=== PATIENT | female | born 1965 | race Caucasian/White ===

== ENCOUNTER 2016-12-02 08:13 | Day surgery (SDC) | payer MEDICARE ==
--- NOTE | ~2016-12-02 | OP ---
Record Of Operation [facility] [address] [place]. 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 Biopsies have been negative for calciphylaxis, although the patient clinically meets the criteria and has responded to the sodium thiosulfate injections, although not completely. The patient has an area that is larger than we can adequately debride in the [facility] due to pain and discomfort and need for more aggressive debridement at this point. PROCEDURE: Excisional debridement down to the muscle layer with injection of 50 mL of sodium thiosulfate in the lateral and periwound areas of the left lower quadrant. A Versajet was used on level 10, and cauterization was achieved with the Bovie cautery. The pulsed lavage was also used at the conclusion for hygiene. The tissue was necrotic slough with skin, subcutaneous tissue, and muscle fascia. The final depth to the muscle layer was 30 cm x 5.5 cm with a 5 cm depth. 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 SURGEON: Karina Ibrahim M.D., FACS GAMING SURVEILLANCE OBSERVER: Jaguar Ibrahim RN, [facility] ANESTHESIA: General with LMA. FLUIDS: 200 mL of fluid were given. ESTIMATED BLOOD LOSS: 30 mL. There was no urine output in this anuric patient. A Vac-Pac with silver sponge was placed at the conclusion. SPECIMENS: Culture on the tissue was sent for anaerobic, aerobic, fungus, and AFB from the deep portion of the ulceration as tissue culture and pathology specimen was sent from the periwound and deeper tissues looking for pathologic evidence of calciphylaxis. The patient will be discharged home once she has recovered. DESCRIPTION OF PROCEDURE: The patient was prepped and draped in routine fashion, where adequate general anesthesia in the area of the abdomen approach in the left lower quadrant, prepped and draped away from the peritoneal catheter site. Occlusive dressings were placed to protect this peritoneal catheter. The jagged necrotic edges of the wound as well as the bottom of the wound and mostly on the lateral aspect of the wound, where there was foul- smelling, black and necrotic slough tissue, were debrided with pickups and scissors. Specimen was submitted, taking the periwound tissues back to more viable tissue. After Record Of Operation [facility] [address] [place]. [address] NAME: JACKIE PLUMMER : 63 STATUS : [facility]#: [id number] AGE: 51 ADM/REG DATE : 12/02/16 MR#: [id number] REPORT SERV DATE: 12/02/16 DICTATED BY: KARINA IBRAHIM III DATE: 12/02/16 REPORT STATUS : Draft TRANSCRIBED BY: PENNY DATE: 12/02/16 cultures had been obtained, antibiotics were given in the form of 2 g of vancomycin and 2 g of Ancef. The patient was then debrided aggressively with the Versajet on 10 level and hemostasis was achieved with the cautery, and following that complete area of debridement, pulsed lavage was used to clean the tissue and irrigate it aggressively. Hemostasis was achieved with cautery, and the wound base was lined with Surgicel to assist with the oozing. Silver sponge was placed to wound VAC and secured with the provided drape adherent to the skin. The estimated blood loss was 30 mL. The patient tolerated the procedure well and should be given a prescription for [place] 5/325 to take one or two every four hours p.r.n. for additional pain, and followup in the [facility] planned in one week. No residual necrosis or slough was left behind, and all viable tissues were noted. A time-out was performed prior to the procedure initiation. All personnel were in full agreement with the time-out planned. MELISSA/PENNY Karina Ibrahim III, M.D. / [id number] CC: Vira Thompson III, [facility] Rebecca Frank M.D.
[~2016-12-02 08:13] MED LIST: APRES50 PO; CORDARONE PO; CRESTOR40 MG PO; DIOV80 PO; ELIQUIS 2.5 MG2.5 MG PO; FISH, FLAX, BORAGE PO; FLONASE NAS; HUMALOG SC; L80 PO; LANTUS SC; LOP25 PO; NEUR100 PO; NORCO1 TA1 PO; NORV5 PO; PROAIR HFA INH; RENVELA800 MG PO; TRAZ50 PO; ZOL100 PO
[2016-12-02 09:22] LABS: BASOPHILS 0.2 %; BASOPHILS ABSOLUTE 0.04 10/3/uL (0.0-0.16); EOSINOPHILS 1.7 %; EOSINOPHILS ABSOLUTE 0.29 10/3/uL (0.0-0.53); IMMATURE GRANULOCYTES 0.5 %; IMMATURE GRANULOCYTES ABSOLUTE 0.08 10/3/uL (0.0-0.11); LYMPHOCYTES 7.4 %; LYMPHOCYTES ABSOLUTE 1.28 10/3/uL (0.67-4.30); MEAN CORPUSCULAR HEMOGLOB 27.2 pg (26.0-34.0); MEAN CORPUSCULAR VOLUME 91.4 fL (80-100); MEAN PLATELET VOLUME 8.9 fL (9.2-13.0); MONOCYTES 11.8 %; MONOCYTES ABSOLUTE 2.04 10/3/uL (0.21-1.20); NEUTROPHILS 78.4 %; NEUTROPHILS ABSOLUTE 13.53 10/3/uL (2.02-8.40); RBC DISTRIBUTION WIDTH 16.3 % (12.0-16.0)
[2016-12-02 09:23] LABS: HEMATOCRIT 26.5 % (36.0-48.0); HEMOGLOBIN 7.9 g/dL (12.0-16.0); MANUAL DIFF NO %; MEAN CORPUS HGB CONC 29.8 g/dL (32.0-36.0); PLATELET COUNT 309 10/3/uL (150-400); WHITE BLOOD CELLS 17.3 10/3/uL (4.5-10.5)
[2016-12-02 09:31] LABS: INTERNATIONAL NORMAL RATI 1.2 UNITS (-); PARTIAL THROMBO TIME 29.2 SEC (22.5-37.2)
[2016-12-02 09:36] LABS: CALCIUM, SERUM 8.3 MG/DL (8.5-10.4); CHLORIDE, SERUM 104 MMOL/L (96-112); CO2 (CARBON DIOXIDE) 26 MMOL/L (24-34); POTASSIUM, SERUM 4.3 MMOL/L (3.5-5.3); SGOT(AST) 27 U/L (5-40); SGPT(ALT) 19 U/L (5-65); SODIUM, SERUM 140 MMOL/L (135-148); TOTAL BILIRUBIN 0.3 MG/DL (0-1.2)
[2016-12-02 09:37] LABS: A/G RATIO 0.4 (0.7-1.9); ALBUMIN 1.9 G/DL (3.5-5.0); ALKALINE PHOSPHATASE 155 U/L (45-117); BUN (BLOOD UREA NITROGEN) 25 MG/DL (6-23); CREATININE 3.37 MG/DL (0.55-1.02); GFR AFRICAN AMERICAN 17 ML/MIN (>=60); GFR NON AFRICAN AMERICAN 15 ML/MIN (>=60); GLOBULIN 5.1 G/DL (2.5-4.1); GLUCOSE, SERUM 88 MG/DL (60-99)
[2017-03-07] MEDS ORDERED: PROAIR HFA INH (10:17)
[2017-04-10] MEDS ORDERED: ROCALTROL0.5 MCG PO (13:49)
[2017-04-10] MEDS ORDERED: PCET PO (13:51)
[2017-04-10] MEDS ORDERED: TUMSROLL PO (13:54)
[2017-04-14] MEDS ORDERED: TUMS E-X750 M2 PO (22:56)
[2017-04-14] MEDS ORDERED: ROCALTROL0.5 MCG PO (22:56)
[2017-04-14] MEDS ORDERED: FLORASTOR250 MG PO (22:57)
[2017-04-14] MEDS ORDERED: PROAIR HFA INH (22:57)
[2017-04-14] MEDS ORDERED: NORV5 PO (23:04)
[2017-04-14] MEDS ORDERED: NEUR100 PO (23:04)
[2017-04-14] MEDS ORDERED: CRESTOR40 MG PO (23:04)
[2017-04-14] MEDS ORDERED: ZOL100 PO (23:04)
[2017-04-14] MEDS ORDERED: SANTYL OINTMENT TOP (23:05)
[2017-04-14] MEDS ORDERED: DIOV160 PO (23:05)
[2017-04-14] MEDS ORDERED: APRES50 PO (23:06)
[2017-04-14] MEDS ORDERED: TRAZ50 PO (23:06)
[2017-04-14] MEDS ORDERED: CORDARONE PO (23:06)
[2017-04-14] MEDS ORDERED: NORCO1 TAB PO (23:06)
[2017-04-14] MEDS ORDERED: LOP25 PO (23:06)
[2017-04-14] MEDS ORDERED: NYSTATPOW TOP (23:07)
[2017-04-14] MEDS ORDERED: LIDO2JELLY TOP (23:08)
[2017-04-14] MEDS ORDERED: ELIQUIS 2.5 MG2.5 MG PO (23:08)
[2017-04-14] MEDS ORDERED: LANTUS SC (23:09)
[2017-04-14] MEDS ORDERED: AURYXIA210 MG PO (23:09)
[2017-04-14] MEDS ORDERED: HUMALOG (23:10)
[2017-04-14] MEDS ORDERED: SEVE800T PO (23:11)
== END 2016-12-02 18:34 | disposition home or self-care (01) ==
LOC: SDC 08:13
PROVIDERS: Surgery
PROC: 0KBL0ZZ Excision of Left Abdomen Muscle, Open Approach (ICD-10-PCS; principal; 2016-12-02 09:45)
DX: K65.4 Sclerosing mesenteritis (principal); E11.622 Type 2 diabetes mellitus with other skin ulcer; L98.499 Non-pressure chronic ulcer of skin of other sites with unspecified severity; E11.22 Type 2 diabetes mellitus with diabetic chronic kidney disease; I12.0 Hypertensive chronic kidney disease with stage 5 chronic kidney disease or end stage renal disease; N18.6 End stage renal disease; G47.33 Obstructive sleep apnea (adult) (pediatric); K21.9 Gastro-esophageal reflux disease without esophagitis; I48.91 Unspecified atrial fibrillation; J45.909 Unspecified asthma, uncomplicated; E66.01 Morbid (severe) obesity due to excess calories; E11.40 Type 2 diabetes mellitus with diabetic neuropathy, unspecified; E78.00 Pure hypercholesterolemia, unspecified; F32.9 Major depressive disorder, single episode, unspecified; F41.9 Anxiety disorder, unspecified; Z99.89 Dependence on other enabling machines and devices; Z68.43 Body mass index [BMI] 50.0-59.9, adult; Z88.2 Allergy status to sulfonamides; Z91.041 Radiographic dye allergy status; Z79.4 Long term (current) use of insulin; Z79.899 Other long term (current) drug therapy; Z79.891 Long term (current) use of opiate analgesic; Z98.890 Other specified postprocedural states; Z90.710 Acquired absence of both cervix and uterus; Z90.89 Acquired absence of other organs
CPT/HCPCS: 80053; 82962; 85025; 85610; 85730; 87015; 87070; 87075; 87077; 87102; 87116; 87186; 87205; 88304; 93005; J0690; J2250; J2270; J2370; J2405; J3010; J3370

== ENCOUNTER 2016-12-08 17:30 | Inpatient (IN) | payer MEDICARE ==
--- NOTE | ~2016-12-08 | OP ---
Record Of Operation [facility] [address] [place]. [address] NAME: JACKIE PLUMMER : 63 STATUS : ADM IN PAT#: [id number] AGE: 51 ADM/REG DATE : 12/09/16 MR#: [id number] REPORT SERV DATE: 12/10/16 DICTATED BY: KARINA IBRAHIM III DATE: 12/10/16 REPORT STATUS : Draft TRANSCRIBED BY: PENNY DATE: 12/10/16 DATE OF PROCEDURE: 12/10/2016 PREOPERATIVE DIAGNOSIS: Peritoneal dialysis catheter no longer being utilized secondary to its proximity to an open left lower quadrant abdominal wound close to the exit point of the peritoneal dialysis catheter in the left lower quadrant and large wound of the left lower quadrant presumably secondary to calciphylaxis, although not biopsy proven. POSTOPERATIVE DIAGNOSIS: Peritoneal dialysis catheter no longer being utilized secondary to its proximity to an open left lower quadrant abdominal wound close to the exit point of the peritoneal dialysis catheter in the left lower quadrant and large wound of the left lower quadrant presumably secondary to calciphylaxis, although not biopsy proven. PATHOLOGY: Peritoneal dialysis catheter that was otherwise functional but extremely close within 7 cm of the edge of the wound in the left lower quadrant precluding its safe usage. The patient has a large open wound of the left lower quadrant that had been debrided about eight days ago and cultured with findings consistent with superficial infection, but the patient grew on 12/02/2016 Enterococcus faecalis, group D, sensitive to Levaquin with which she is being treated. PROCEDURE: Removal of peritoneal dialysis catheter with culture and sensitivity of its tip followed by a culture and sensitivity of the lateral aspect of the left lower quadrant wound followed by debridement of left lower quadrant wound. Skin, subcu, and muscle excisionally debrided using a Versajet at level 7. This was followed by application of [employer] wound VAC set at 150 mmHg continuous mode vacuum. Two pieces of Surgicel were used on the base of the left lower quadrant wound. ESTIMATED BLOOD LOSS: 5 mL. The postoperative dimension of the left lower quadrant wound was 7.5 x 30 x 5.5 with a tunnel in the left lateral aspect that was 8 cm that was covered with Surgicel and VAC sponge extended down into the tunnel. DESCRIPTION OF PROCEDURE: The patient was prepped and draped in the routine fashion excluding the area of the left lower quadrant wound with an Ioban and prepping out the area of the left lower quadrant peritoneal dialysis catheter initially. The entire catheter was prepped into the operative field. Gentle pressure on the catheter showed an area where there was tension where the VitaCuff was present and a small transverse incision about 2 cm in length was made in this area to cut down on the peritoneal dialysis catheter. The VitaCuff both proximal and distal cuffs were identified and dissected away from the catheter and subcu tissue using cautery. After this was done, the two VitaCuff-adhered areas, the peritoneal dialysis catheter was pulled out of the peritoneum and the tip placed in a sterile cup for culture and sensitivity of the tip. After this was done, the track of the perineal dialysis catheter was closed with 2-0 Vicryl Record Of Operation [facility] [address] [facility] [place]. [address] NAME: JACKIE PLUMMER : 63 STATUS : ADM IN [facility]#: [id number] AGE: 51 ADM/REG DATE : 12/09/16 MR#: [id number] REPORT SERV DATE: 12/10/16 DICTATED BY: KARINA IBRAHIM III DATE: 12/10/16 REPORT STATUS : Draft TRANSCRIBED BY: PENNY DATE: 12/10/16 [id number] sutures. Subcutaneous tissues were irrigated and closed with interrupted 3- 0 Vicryl on the skin and left open, but loosely approximated with the subcutaneous Vicryls. The exit point of the left lower quadrant was cauterized circumferentially, but not formally closed allowing the track to drain. Telfa and Tegaderm were applied to the areas. Again, the wounds of the peritoneal dialysis excision were excluded from the left lower quadrant wound, which was then exposed after having it prepped and draped preoperatively. A time-out had been held prior to the peritoneal dialysis catheter excision and then again another time-out prior to the excision of the left lower quadrant wound presumably secondary to calciphylaxis and fat necrosis as well as secondary infection. The wound was inspected and noted to have some early granulation tissue involving about 30% of the wound, but there were several areas of slough and some fat necrosis that were excisionally debrided with the #7 setting of the Versajet, most of which were on the medial aspect, and then the tunneled area of the lateral aspect was opened gently and Versajet was used to clean the slough and necrotic tissue that was somewhat seropurulent in the area. Cultures were obtained from this area to reassess potential infection. After this was done, the area was reinspected. Hemostasis achieved with the cautery. Versajet was used to excisionally debride any areas that were with slough that were some spotty areas in this relatively large tissue. The dissection level was excisional and to the skin, subcu, and muscle layer. After this was done, Surgicel was placed along the base of the large wound, which measured 7.5 x 30 x 5.5 with the tunnel 8 cm in the lateral aspect. Wound VAC was then applied with sterile technique and sterile draping and VAC applied at 150 mmHg continuous mode vacuum. The patient tolerated the procedure well. Minimal blood loss of 5 mL, but she was quite anemic prior to the procedure, which needs to be followed. Continue the Levaquin and follow her in the [facility] after her discharge, which should be forthcoming. MELISSA/PENNY Karina Ibrahim III, M.D. / [id number] CC: Vira Malik AZHAR S. James Hoback Jr., M.D.
--- NOTE | ~2016-12-08 | DS ---
Discharge Summary [facility] [address] [place]. [address] NAME: JACKIE PLUMMER : 63 STATUS : DIS IN PAT#: [id number] AGE: 51 ADM/REG DATE : 12/09/16 MR#: [id number] REPORT SERV DATE: 12/22/16 DICTATED BY: ADAN ROMEO DATE: 12/21/16 REPORT STATUS : Draft TRANSCRIBED BY: PENNY DATE: 12/21/16 Data Collection from hospitalization DISCHARGE DIAGNOSES: 1. Chest pain. 2. Abdominal calciphylaxis with secondary cellulitis and peritoneal dialysis catheter removal. 3. End-stage renal disease. 4. Morbid obesity. 5. Protein malnutrition. 6. Hypertension. 7. Anemia - acute on chronic. 8. Iron deficiency. 9. Leukocytosis. 10.History of renal osteodystrophy. 11.History of depression. 12.History of paroxysmal atrial fibrillation. 13.History of obstructive sleep apnea. CONSULTATIONS: 1. Juice Carballo M.D. 2. Matias Ibrahim M.D. PROCEDURES PERFORMED: Removal of peritoneal dialysis catheter with culture and sensitivity of its tip followed by culture and sensitivity of the lateral aspect of the left lower quadrant wound followed by debridement of left lower quadrant wound. Skin, subcutaneous, and muscle excisionally debrided using Versajet at level 7, this was followed by application of [employer] wound VAC set at 150 mmHg continuous mode vacuum. Two pieces of Surgicel were used on the base of the left lower quadrant wound on 12/10/2016. MEDICATIONS: Cordarone 200 mg daily; Norvasc 5 mg daily; Eliquis 2.5 mg twice a day; Aranesp 60 mcg IV on Mondays, Wednesdays, and Fridays; Auryxia 210 mg with meals; Lasix 80 mg twice a day; Neurontin 100 mg daily; Apresoline 50 mg twice a day; [place] 10/325 one tablet every eight hours as needed; Lantus 35 units subcutaneously twice a day; Venofer infusion 100 mg on Mondays, Wednesdays, and Fridays as instructed; Levaquin 500 mg every 48 hours; Lopressor 25 mg twice a day; Bactroban cream one application three times a day; Mycostatin one application topically three times a day; Zemplar 3 mcg IV on Mondays, Wednesdays, Fridays; Crestor 40 mg at bedtime; Florastor 250 mg daily; Zoloft 150 mg daily; Renvela 800 mg with meals.; Desyrel 50 mg at bedtime; Pro-Stat renal care 30 mL three times a day; and Diovan 160 mg daily. CONDITION AT DISCHARGE: Stable. DISPOSITION: The patient was discharged home on an 1800-calorie diabetic/renal diet with activities as instructed. She would follow up with Dr. Alvin Shafer on 12/29/[address] Matias Ibrahim III, on 12/20/2016. HOSPITAL COURSE: This is a 51-year-old female who has diabetes and hypertension as well as Discharge Summary [address] [address] NAME: JACKIE PLUMMER : 63 STATUS : DIS IN [facility]#: [id number] AGE: 51 ADM/REG DATE : 12/09/16 MR#: [id number] REPORT SERV DATE: 12/22/16 DICTATED BY: ADAN ROMEO DATE: 12/21/16 REPORT STATUS : Draft TRANSCRIBED BY: PENNY DATE: 12/21/16 hyperlipidemia and calciphylaxis who had been taken off hemodialysis at [facility] one hour early on the day of this admission when she suffered substernal chest pain described as tightness with radiation towards the back area. For the previous two days, she had noticed episodes of pleuritic chest pain characterized as discomfort when she would suck in a deep breath and during those times would note some numbness in the left hand. This was not continuous, but would last for several minutes and then resolved. She was thought to have hypoxemia on pulse oximetry at home and that was not found when she presented to the emergency department. She was to have an unremarkable EKG and negative troponin enzymes. However, the chest pain that she was having when she was taken off dialysis was relieved when she was given nitroglycerin in the ambulance. She has no prior history of coronary artery disease. She was admitted to the hospital for further evaluation and treatment. Upon admission, white blood cell count was 16. Troponin I was less than 0.02 on two subsequent measurements. She has anemia secondary to chronic kidney disease with recent high severity with hemoglobin down to 7. She was originally planned for two units of packed red blood cells to be given at her outpatient dialysis on that following Tuesday. If she goes home prior to that day, she could still have this undertaken. The patient does have calciphylaxis with left lower abdominal wound subpannus with a Vac-Pac in place. She does have mild hypoxemia. Serial troponins would be obtained overnight. Possible nuclear stress test would be performed the following day. Nitroglycerin would be given as needed. Her home medications were going to be resumed as ordered. She was seen in consultation by Dr. Matias Ibrahim III. This patient is followed regularly in the [facility] for left lower quadrant pannicular calciphylaxis with subsequent large ulcerative lesion that measures 5.5 x 30 cm with a depth of 5 cm after her last debridement on 12/02/2016. Culture and sensitivity from 12/02/2016 showed primarily Enterococcus faecalis group D with moderate growth that was sensitive to Levaquin. She still has a peritoneal dialysis catheter in place. She had been on peritoneal dialysis up until the past few weeks and was presently on hemodialysis. The peritoneal dialysis catheter was in place close to the wound, which should be removed for preventatives problems, especially since she no longer uses this catheter. He felt we should plan to debride again lightly and remove the peritoneal dialysis catheter. It was felt that she would be a reasonable candidate for this procedure. She was also seen by Dr. Juice Carballo regarding chest pain and underlying diabetes and end- stage renal disease. She had no exertional symptoms and no exertional palpitations. He felt that she had atypical chest pain. He felt that she certainly had risk factors for coronary disease, but at this point, he would not let this interfere with the proposed surgery. Her most recent EKG from 1:00 p.m. that day was normal. There were no contraindications to the proposed surgery. He felt that we could determine whether or not perfusion scan would be warranted in an outpatient setting. On 12/10/2016, she had no further chest pain. Eliquis was on hold. She was going to be transfused two units of packed red blood cells. She was taken to the operating room by Dr. Matias Ibrahim III, where she underwent the above-mentioned procedure. She tolerated this well, and there were no complications. Antibiotics were continued. Blood cultures were negative. Dialysis therapy continued. On 12/11/2016, she was in no acute distress. O2 saturation was 95% on room air. Over the next couple of days, she continued to do well. Hemodialysis therapy continued. She had no Discharge Summary [place] [id number] [facility] [place]. [address] NAME: JACKIE PLUMMER : 63 STATUS : DIS IN PAT#: [id number] AGE: 51 ADM/REG DATE : 12/09/16 MR#: [id number] REPORT SERV DATE: 12/22/16 DICTATED BY: ADAN ROMEO DATE: 12/21/16 REPORT STATUS : Draft TRANSCRIBED BY: PENNY DATE: 12/21/16 new complaints. She was wanting to go home. On 12/13/2016, she was alert and cooperative. She had no focal deficits. The wound VAC was changed. The peritoneal dialysis catheter cultures revealed no growth. Discharge instructions were given. Due to her improved and stable condition, she was discharged home to be followed by home health care with the above- stated instructions. Information collected by: Mehreen Tomlin I submit the above information as my discharge summary. TG/PENNY Adan Romeo M.D. / [id number] CC: Vira Malik AZHAR S. David Wendt, M.D. Robert Barnett III, M.D.
--- NOTE | ~2016-12-08 | CN ---
Consultation Report [facility] [address] [place]. [address] NAME: JACKIE PLUMMER : 63 STATUS : ADM IN PAT#: [id number] AGE: 51 ADM/REG DATE : 12/09/16 MR#: [id number] REPORT SERV DATE: 12/10/16 DICTATED BY: RIZWANA CARBALLO DATE: 12/09/16 REPORT STATUS : Draft TRANSCRIBED BY: MODAlan DATE: 12/09/16 CARDIOLOGY CONSULTATION DATE OF CONSULTATION: INDICATIONS: Chest pain, underlying diabetes, end-stage renal disease. HISTORY: The patient is a 51-year-old white female, with a fairly complex medical history including atrial fibrillation and atrial flutter x2 with most recent ablation on 10/31/2009. She had been controlled on metoprolol 25 b.i.d. until this past year, when she started to have recurrent tachy palpitations. She is now on insulin, starting 200 mg per day of amiodarone, her symptoms have subsided. She is admitted 12/08/2016 with substernal chest discomfort while on dialysis. The patient states, she has had three episodes of discomfort over the past three to four days. The episodes she describes as sharp with radiation to the back, worse with deep breathing, with associated left hand numbness. There is no nausea, diaphoresis, or shortness of breath. She did note a decrease in O2 saturation on Tuesday (87% to 92%). She was given some oxygen while at dialysis yesterday and her O2 sats have been normal since that time. She has had no exertional symptoms and no exertional palpitations. Her last perfusion study was three years ago at [facility], which is reported to have been normal. CURRENT HOME MEDICATIONS: Amiodarone 200 per day, amlodipine 5 per day, Apixaban 2.5 b.i.d., Aranesp 60 IV Tuesday, Tuesday, Tuesday with dialysis, ferric citrate 210 per day, furosemide 80 b.i.d., gabapentin 100 per day, hydralazine 50 b.i.d., hydrocodone 10/325 q.8h p.r.n., insulin glargine 35 units subcu b.i.d., iron sucrose infusion with dialysis, metoprolol tartrate 25 b.i.d., paricalcitol 5 mcg injection Tuesday, Tuesday, Tuesday, rosuvastatin 40 at bedtime, Saccharomyces boulardii 250 mg capsule daily, sertraline 50 a day, sevelamer 800 with meals, trazodone 50 at bedtime, ProStat Renal Care 30 mL Tuesday, Tuesday, Tuesday, and valsartan 160 a day. ALLERGIES OR INTOLERANCES: IV contrast, sulfa, and hydromorphone. 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 Does not smoke or use illicit substances. FAMILY HISTORY: Father had lung cancer. Mother had diabetes. No family history of coronary disease. PAST MEDICAL HISTORY/REVIEW OF SYSTEMS: She is now on hemodialysis, previously on PD for biopsy-proven diabetic nephropathy. She has anemia of chronic kidney disease with recent hemoglobin at 7, there is some chronic hypertension, renal osteodystrophy, calciphylaxis with a large wound in the left lower quadrant of the abdomen, sub-pannus, paroxysmal atrial fibrillation which is presently well controlled, previous lap band surgery in 2005, history Consultation Report [address] [address] NAME: JACKIE PLUMMER : 63 STATUS : ADM IN PAT#: [id number] AGE: 51 ADM/REG DATE : 12/09/16 MR#: [id number] REPORT SERV DATE: 12/10/16 DICTATED BY: RIZWANA CARBALLO DATE: 12/09/16 REPORT STATUS : Draft TRANSCRIBED BY: PENNY DATE: 12/09/16 of obstructive sleep apnea. At this time, her peritoneal catheter is to be removed. The calciphylaxis region wound area is large and open, there is concern about developing peritonitis if the surgery is not performed. PHYSICAL EXAMINATION: VITAL SIGNS: Blood pressure 142/52, pulse 74, respirations 18. SKIN: No xanthelasmas. There is a large wound in the left lower abdominal quadrant with calciphylaxis of the skin. HEENT: She is normocephalic. There is no pallor. Sclerae white. JVD is not elevated. CHEST: No crackles. CARDIAC: S1 normal, S2 physiologic. There is a soft S4. ABDOMEN: Without tenderness. Bowel sounds positive. EXTREMITIES: Without edema. No clubbing. Pulses are +2 and symmetric. NEUROLOGIC: No focal deficits. LABORATORY DATA: BUN 13, creatinine 2.01, potassium 3.5, magnesium 1.5, albumin 1.9. Cardiac enzymes have been negative. White count 16, hemoglobin 7.8, platelets 383,000. INR 1.3. Baseline ECG shows sinus rhythm with no acute repolarization changes present. IMPRESSION: Atypical chest pain. She certainly has risk factors for coronary disease, but at this point, I would not let this interfere with proposed surgery. The most recent EKG from 12/09/2016 at 1300 hours is normal. No contraindication to proposed surgery. We can determine whether not perfusion scan would be warranted in an outpatient setting. COURTNEY/MODL Rizwana Carballo M.D. / [id number] CC: Vira Malik
--- NOTE | ~2016-12-08 | CN ---
Consultation Report [facility] [address] [place]. [address] NAME: JACKIE PLUMMER : 63 STATUS : ADM Antoine PAT#: [id number] AGE: 51 ADM/REG DATE : 12/08/16 MR#: [id number] REPORT SERV DATE: 12/09/16 DICTATED BY: KARINA IBRAHIM III DATE: 12/09/16 REPORT STATUS : Draft TRANSCRIBED BY: PENNY DATE: 12/09/16 INTERIM CONSULT NOTE DATE OF CONSULTATION: 12/09/2016 The patient is a 51-year-old white female who is [facility] up [facility] for a left lower quadrant pannicular calciphylaxis with subsequent large ulcerative lesion that measures 5.5 x 30 cm with a depth of 5 cm after her last debridement on 12/02/2016. She is now admitted with chest pain, relieved by nitroglycerin. It lasted about 30 minutes. She also has a leukocytosis. Culture and sensitivity from 12/02/2016 showed primarily Enterococcus faecalis group D with moderate growth that was sensitive to Levaquin. Further significant past history on the patient is she has been on peritoneal dialysis up until the last few weeks and presently on hemodialysis. She still has her peritoneal dialysis catheter. PAST MEDICAL HISTORY: Includes end-stage renal disease with diabetic neuropathy with morbid obesity, chronic anemia secondary to kidney disease, chronic hypertension, chronic edema, calciphylaxis, and large wound in the left lower quadrant, presumably calciphylaxis that has been treated with injections of sodium thiosulfate as well as multiple debridements and wound VAC therapy. She also has a history of renal osteodystrophy; hypertension; depression; history of paroxysmal atrial fibrillation, for which, she received amiodarone; lap band surgery in 2005; history of obstructive sleep apnea; and history of prior cardiac ablation for atrial fibrillation. HOME MEDICATIONS: She is on a number of home medications including Hydrocodone/APAP 10/325 every 8 hours p.r.n. for pain. Takes Lantus insulin for her diabetes, 35 units twice a day; Venofer; iron sucrose 100 mg IV on Mondays, Wednesdays, and Fridays during hemodialysis. She also takes metoprolol tartrate 25 mg twice a day and Zemplar 3 mcg injections Mondays, Wednesdays, and Fridays at dialysis. She also is on Crestor 40 mg at bedtime; Florastor 250 mg orally daily; sertraline 150 mg oral daily; sevelamer 800 mg orally three times a day with meals; amiodarone 200 mg oral daily; amlodipine 5 mg daily; apixaban (Eliquis) 2.5 mg oral twice a day; darbepoetin 50 mcg IV on Tuesday, Tuesday, and Fridays; Auryxia, which is ferric citrate, orally three times a day; furosemide 80 mg twice a day; gabapentin 100 mg daily; hydralazine 50 mg twice a day; trazodone 50 mg at bedtime; Pro-Stat renal care protein supplement 30 mg orally three times a day Mondays, Wednesdays, and Fridays; valsartan 150 mg daily; and sodium thiosulfate intra-wound multiple injections intralesionally performed. FAMILY HISTORY: Positive for lung cancer with dad. Mother with diabetes. 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 SOCIAL HISTORY: Does not smoke, drink, or use illegal drugs. Consultation Report [address] [place]. [address] NAME: JACKIE PLUMMER : 63 STATUS : ADM Antoine PAT#: [id number] AGE: 51 ADM/REG DATE : 12/08/16 MR#: [id number] REPORT SERV DATE: 12/09/16 DICTATED BY: KARINA IBRAHIM III DATE: 12/09/16 REPORT STATUS : Draft TRANSCRIBED BY: PENNY DATE: 12/09/16 PHYSICAL EXAMINATION: GENERAL: She is a morbidly obese white female in no acute distress. HEENT: Showed no lateralization. NECK: Supple. CHEST: Clear with a right IJ tunnel catheter. HEART: Her heart rate was without gallop, murmur, or thrill. ABDOMEN: Her abdomen was protuberant with the large defect in the left lower quadrant that was 5.5 x 30 x 5.0 cm that had a moderate amount of slough and some fat necrosis along the edges but much casing cleaner than preoperatively a week ago. Her neurologic exam was unremarkable. She did have significant neuropathy in her feet. IMPRESSION: From a surgical standpoint, she has a continued wound defect in the left lower quadrant that is responding to therapy very slowly but seems to be limiting with multiple injections and debridements. She also has a peritoneal dialysis catheter in place close to the wound which should be removed for preventative problems especially since she is no longer using this catheter. PLAN: We will plan to debride the patient again lightly and remove the peritoneal dialysis catheter tomorrow. I have discussed with Dr. 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 I feel she will be a reasonable candidate for this procedure with risks that are acceptable. I have discussed with the patient risk and expectations. She accepts risks for potential benefit. RB/MODL Karina Ibrahim III, M.D. / [id number] CC: Rebecca Frank M.D. [facility]le[facility]chez [facility]
--- NOTE | ~2016-12-08 | HP ---
History And Physical [place] [id number] [facility] [place]. [address] NAME: JACKIE PLUMMER : 63 STATUS : ADM Antoine PAT#: [id number] AGE: 51 ADM/REG DATE : 12/08/16 MR#: [id number] REPORT SERV DATE: 12/09/16 DICTATED BY: ADAN ROMEO DATE: 12/08/16 REPORT STATUS : Draft TRANSCRIBED BY: MODAlan DATE: 12/08/16 DATE OF ADMISSION: 12/08/2016 CHIEF COMPLAINT: Chest pain. HISTORY OF PRESENT ILLNESS: This is a 51-year-old, female, diabetic hypertensive with hyperlipidemia and calciphylaxis who was taken off hemodialysis at the [facility] one hour early today when she suffered substernal chest pain described as tightness with radiation towards the back area. The patient had for the previous two days noted episodes of pleuritic chest pain characterized as discomfort when she would suck in a deep breath and during those times would note some numbness in the left hand. This was not continuous but would last for several minutes and then resolve. She was thought to have hypoxemia on pulse oximetry at home, and that was not found when she presented to the emergency department. She was found to have an unremarkable EKG and negative troponin enzymes. However, the chest pain that she was having when she was taken off dialysis was relieved when she was given nitroglycerin in the ambulance. The patient has no prior history of coronary artery disease. PAST MEDICAL HISTORY: 1. ESRD secondary to biopsy-proven diabetic nephropathy. 2. Morbid obesity. 3. Anemia of chronic kidney disease. Recent hemoglobin was down to 7 g/dL, and there was a plan for her to receive a blood transfusion this coming Tuesday at dialysis. She has apparently been typed and crossed for 2 units. 4. Chronic hypertension. 5. Chronic edema. 6. Calciphylaxis with a large wound left lower quadrant anterior abdomen, sub-pannus with Vac-Pac in place, and followed by Dr. Ibrahim. 7. Renal osteodystrophy. 8. Hypertension. 9. Failed peritoneal dialysis, restarted on hemodialysis a couple of months ago. 10.Renal osteodystrophy with hyperparathyroidism secondary to chronic kidney disease. 11.History of depression. 12.History of paroxysmal atrial fibrillation, for which she receives chronic amiodarone therapy and is also on chronic anticoagulation with Eliquis. 13.Lap band surgery in 2005. 14.History of obstructive sleep apnea. 15.Prior cardiac ablation for atrial fibrillation. 16.Calciphylaxis wound left lower abdomen followed by Dr. Ibrahim. ALLERGIES: IVP DYE, SULFA DRUGS, DILAUDID. DILAUDID ONLY CAUSED VOMITING IN THE PAST. HOME MEDICATIONS: 1. Hydrocodone/APAP 10/325 mg oral every 8 hours as needed for pain. 2. Lantus Insulin subcutaneously 35 units twice daily. 3. Venofer, iron sucrose, 100 mg IV on Mondays, Wednesdays, and Fridays during History And Physical [address] [address] NAME: JACKIE PLUMMER : 63 STATUS : ADM Antoine PAT#: [id number] AGE: 51 ADM/REG DATE : 12/08/16 MR#: [id number] REPORT SERV DATE: 12/09/16 DICTATED BY: ADAN ROMEO DATE: 12/08/16 REPORT STATUS : Draft TRANSCRIBED BY: PENNY DATE: 12/08/16 hemodialysis. 4. Metoprolol tartrate 25 mg oral twice daily. 5. Zemplar 3 mcg injection on Mondays, Wednesdays, and Fridays at dialysis. 6. Rosuvastatin, Crestor, 40 mg oral at bedtime. 7. Florastor 250 mg oral daily. 8. Sertraline 150 mg oral daily. 9. Sevelamer 800 mg oral 3 times daily with meals. 10.Amiodarone 200 mg oral daily. 11.Amlodipine 5 mg oral daily. 12.Apixaban 2.5 mg oral twice daily. 13.Darbepoetin 60 mcg IV on Mondays, Wednesdays, and Fridays after dialysis. 14.Auryxia which is ferric citrate 210 mg oral three times daily with meals as phosphorus binder. 15.Furosemide 80 mg oral twice daily. 16.Gabapentin 100 mg oral daily. 17.Hydralazine 50 mg oral twice daily. 18.Trazodone 50 mg oral at bedtime. 19.Pro-Stat Renal Care protein supplement 30 mL oral 3 times daily, Tuesday, Tuesday, and Tuesday after dialysis at her regular dialysis unit. 20.Valsartan 160 mg oral daily. 21.Sodium thiosulfate intra-wound injections per schedule, determined by Dr. Ibrahim. 22.Vac-Pac dressing changes per Dr. Ibrahim. She has had debridements recently. FAMILY HISTORY: Her dad had lung cancer. Her mother had diabetes. 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 She does not smoke, drink, or use any illicit substances. REVIEW OF SYSTEMS: As outlined above and otherwise negative. PHYSICAL EXAMINATION: VITAL SIGNS: Temperature 98.1, heart rate 70 beats per minute, respiratory rate 18 breaths per minute, blood pressure 143/35. GENERAL: She is morbidly obese, female, appears her stated age. She was alert, lucid, and in no distress. HEENT: Normocephalic, atraumatic. External ears and nose normal. Sinuses nontender. Oropharynx, mucous membranes are moist and pale and free of any ulcerations or exudates. Eye exam with conjunctivae free of any hemorrhages or exudates. Sclerae anicteric. Extraocular motor functions intact without pain. NECK: Supple. Easily movable without any palpable masses or nodules. Trachea midline, thick and fleshy. LYMPHATIC: Anterior and posterior neck supraclavicular and abdominal regions were free of lymphadenopathy. CHEST: Chest wall, right IJ tunnel catheter tunnel free of any tenderness, induration, fluctuance, or any expressible drainage at the exit site. RESPIRATORY: Efforts are nonlabored. Lung boles are clear to auscultation throughout. History And Physical [address] [address] NAME: JACKIE PLUMMER : 63 STATUS : ADM Antoine PAT#: [id number] AGE: 51 ADM/REG DATE : 12/08/16 MR#: [id number] REPORT SERV DATE: 12/09/16 DICTATED BY: ADAN ROMEO DATE: 12/08/16 REPORT STATUS : Draft TRANSCRIBED BY: MODAlan DATE: 12/08/16 CARDIOVASCULAR: Regular rate and rhythm at present, without any gallop, rub, or murmur. About 2+ pitting dependent edema bilateral lower extremities. ABDOMEN: Protuberant, nontender to palpation except in the region of her wound. Active bowel sounds noted throughout. No guarding to palpation. SKIN EXAM: She has a 25 cm length sub-pannus wound which is packed with vacuum pack, and the pack is air tight and functioning properly. Minimal surrounding erythema. I am told this is from calciphylaxis. STUDIES: Chemistry; sodium 139, potassium 3.5, chloride 101, CO2 of 28.8, BUN 13, creatinine 2.01, calcium 7.9, magnesium 1.5. CBC: White cell count 16, hemoglobin 7.8, hematocrit 25.9%, and platelets 383. Troponin I less than 0.02 on two subsequent measurements. Chest x-ray reviewed by me revealed obesity with under-penetrated technique. Good inflation noted. Right IJ tunnel dialysis catheter noted in proper position. There is no infiltrate noted in the lung boles. Arterial blood gas on room air; pH 7.52, PaCO2 of 36, PaO2 of 72 which is slightly low, bicarbonate 28.8. O2 saturation 95.3%, this is on room air. IMPRESSION: 1. Chest pain with some atypical features but notable for 30 minute duration and relieved by nitroglycerin sublingually. She has many risk factors for coronary artery disease including diabetes, hyperlipidemia, and hypertension with end-stage renal disease. 2. Anemia secondary to chronic kidney disease with recent high severity with hemoglobin down to 7 g/dL. She was originally planned for 2 units packed red blood cells to be given at her outpatient dialysis unit this coming Tuesday. Certainly if she goes home, that can still be undertaken. 3. Hypomagnesemia. 4. End-stage renal disease with hemodialysis Tuesday, Tuesday, and Tuesday. Renal failure was secondary to diabetic nephropathy. 5. Calciphylaxis with left lower abdominal wound sub-pannus with Vac-Pac in place. Dr. Ibrahim is following. 6. Mild hypoxemia noted on ABG. PLAN: 1. Serial troponins overnight tonight. 2. Possible nuclear stress test tomorrow. 3. Ongoing p.r.n. nitroglycerin. 4. Resume home medications as ordered. 5. Recheck room air arterial blood gas the morning. I strongly doubt she has a pulmonary embolism as she takes chronic Eliquis therapy for anticoagulation. Her risk would simply be too low for that to be high likelihood. MARY/PENNY [address] And Physical [address] [facility] [place] [address] NAME: JACKIE PLUMMER : 63 STATUS : ADM Antoine PAT#: [id number] AGE: 51 ADM/REG DATE : 12/08/16 MR#: [id number] REPORT SERV DATE: 12/09/16 DICTATED BY: ADAN ROMEO DATE: 12/08/16 REPORT STATUS : Draft TRANSCRIBED BY: MODAlan DATE: 12/08/16 Adan Romeo M.D. / [id number] CC: Vira Malik N.P.
[2016-12-08 16:16] LABS: BASOPHILS 0.2 %; BASOPHILS ABSOLUTE 0.03 10/3/uL (0.0-0.16); EOSINOPHILS 2.5 %; ER CBC TAT 0 Hrs 13 Mins; HEMATOCRIT 25.9 % (36.0-48.0); HEMOGLOBIN 7.8 g/dL (12.0-16.0); IMMATURE GRANULOCYTES 0.8 %; IMMATURE GRANULOCYTES ABSOLUTE 0.12 10/3/uL (0.0-0.11); LYMPHOCYTES 11.4 %; LYMPHOCYTES ABSOLUTE 1.83 10/3/uL (0.67-4.30); MEAN CORPUS HGB CONC 30.1 g/dL (32.0-36.0); MEAN CORPUSCULAR HEMOGLOB 27.3 pg (26.0-34.0); MEAN CORPUSCULAR VOLUME 90.6 fL (80-100); MEAN PLATELET VOLUME 9.2 fL (9.2-13.0); MONOCYTES 8.3 %; MONOCYTES ABSOLUTE 1.32 10/3/uL (0.21-1.20); NEUTROPHILS 76.8 %; NEUTROPHILS ABSOLUTE 12.29 10/3/uL (2.02-8.40); NUCLEATED RED BLOOD CELLS 0.3 /100WBC (0-0); PLATELET COUNT 383 10/3/uL (150-400); RBC DISTRIBUTION WIDTH 16.9 % (12.0-16.0); RED CELL COUNT 2.86 10/6/uL (4.0-5.6)
[2016-12-08 16:21] LABS: INTERNATIONAL NORMAL RATI 1.3 UNITS (-)
[2016-12-08 16:22] LABS: MANUAL DIFF NO %; PARTIAL THROMBO TIME 63.2 SEC (22.5-37.2)
[2016-12-08 16:26] LABS: CALCIUM, SERUM 7.9 MG/DL (8.5-10.4); CHEST PAIN PROFILE TAT 0 Hrs 23 Mins; CHLORIDE, SERUM 101 MMOL/L (96-112); CO2 (CARBON DIOXIDE) 30 MMOL/L (24-34); GFR AFRICAN AMERICAN 32 ML/MIN (>=60); GFR NON AFRICAN AMERICAN 28 ML/MIN (>=60); GLUCOSE, SERUM 76 MG/DL (60-99); POTASSIUM, SERUM 3.5 MMOL/L (3.5-5.3); SODIUM, SERUM 139 MMOL/L (135-148); TROPONIN I <0.02 NG/ML (<0.05)
[2016-12-08 16:28] LABS: BUN (BLOOD UREA NITROGEN) 13 MG/DL (6-23); CREATININE 2.01 MG/DL (0.55-1.02)
[2016-12-08 17:58] LABS: ALLENS TEST Pos; BE (BASE EXCESS) 5.5 MEQ/L (0 +/- 2.5); CARBOXYHEMOGLOBIN 1.7 % (0-3); HCO3 (ACTUAL BICARBONATE) 28.8 MEQ/L (23-27); HEMOBLOGIN CONTENT 7.8 G/DL (12-16); INSTRUMENT SERIAL # 8087; METHEMOGLOBIN 0.1 % (0-3); O2 CONTENT 10.4 VOL% (18-24); PCO2 (CO2 TENSION) 36 MMHG (35-45); PO2 (O2 TENSION) 72 MMHG (79-93); SAMPLE Arterial; pH 7.52 (7.37-7.43)
[2016-12-08] MEDS ORDERED: ARANESP60 IV (18:44)
[2016-12-08] MEDS ORDERED: VENOFER IV (18:45)
[2016-12-08] MEDS ORDERED: ZEMPLAR IV (18:47)
[2016-12-08] MEDS ORDERED: CORDARONE PO (18:48)
[2016-12-08] MEDS ORDERED: NORV5 PO (18:48)
[2016-12-08] MEDS ORDERED: CRESTOR40 MG PO (18:49)
[2016-12-08] MEDS ORDERED: AURYXIA210 MG PO (18:49)
[2016-12-08] MEDS ORDERED: APRES50 PO (18:49)
[2016-12-08] MEDS ORDERED: DIOV160 PO (18:50)
[2016-12-08] MEDS ORDERED: FLORASTOR250 MG PO (18:51)
[2016-12-08] MEDS ORDERED: ELIQUIS 2.5 MG2.5 MG PO (18:51)
[2016-12-08] MEDS ORDERED: LANTUS SC (18:51)
[2016-12-08] MEDS ORDERED: L80 PO (18:52)
[2016-12-08] MEDS ORDERED: PROTEIN SUPPLEMENT PO (18:54)
[2016-12-08] MEDS ORDERED: NORCO1 TAB PO (18:54)
[2016-12-08] MEDS ORDERED: RENVELA800 MG PO (18:55)
[2016-12-08] MEDS ORDERED: NEUR100 PO (18:55)
[2016-12-08] MEDS ORDERED: LOP25 PO (18:55)
[2016-12-08] MEDS ORDERED: ZOL50 PO (18:56)
[2016-12-08] MEDS ORDERED: TRAZ50 PO (18:56)
[2016-12-10 07:27] LABS: BASOPHILS 0.1 %; BASOPHILS ABSOLUTE 0.02 10/3/uL (0.0-0.16); EOSINOPHILS 2.6 %; EOSINOPHILS ABSOLUTE 0.37 10/3/uL (0.0-0.53); HEMATOCRIT 25.1 % (36.0-48.0); HEMOGLOBIN 7.5 g/dL (12.0-16.0); IMMATURE GRANULOCYTES 0.7 %; LYMPHOCYTES ABSOLUTE 1.41 10/3/uL (0.67-4.30); MANUAL DIFF NO %; MEAN CORPUS HGB CONC 29.9 g/dL (32.0-36.0); MEAN CORPUSCULAR HEMOGLOB 27.2 pg (26.0-34.0); MEAN CORPUSCULAR VOLUME 90.9 fL (80-100); MEAN PLATELET VOLUME 8.9 fL (9.2-13.0); MONOCYTES 9.9 %; MONOCYTES ABSOLUTE 1.39 10/3/uL (0.21-1.20); NEUTROPHILS 76.7 %; NEUTROPHILS ABSOLUTE 10.81 10/3/uL (2.02-8.40); PLATELET COUNT 363 10/3/uL (150-400); RED CELL COUNT 2.76 10/6/uL (4.0-5.6); WHITE BLOOD CELLS 14.1 10/3/uL (4.5-10.5)
[2016-12-10 07:43] LABS: ALBUMIN 1.6 G/DL (3.5-5.0); BUN (BLOOD UREA NITROGEN) 36 MG/DL (6-23); CHLORIDE, SERUM 100 MMOL/L (96-112); CO2 (CARBON DIOXIDE) 25 MMOL/L (24-34); CREATININE 4.23 MG/DL (0.55-1.02); GFR AFRICAN AMERICAN 13 ML/MIN (>=60); GFR NON AFRICAN AMERICAN 11 ML/MIN (>=60); GLUCOSE, SERUM 168 MG/DL (60-99); PHOSPHORUS, SERUM 3.4 MG/DL (2.5-4.5); POTASSIUM, SERUM 4.2 MMOL/L (3.5-5.3); SODIUM, SERUM 134 MMOL/L (135-148)
[2016-12-10 07:44] LABS: CALCIUM, SERUM 8.7 MG/DL (8.5-10.4)
[2016-12-11 06:13] LABS: BASOPHILS 0.2 %; BASOPHILS ABSOLUTE 0.03 10/3/uL (0.0-0.16); EOSINOPHILS 2.2 %; EOSINOPHILS ABSOLUTE 0.32 10/3/uL (0.0-0.53); HEMATOCRIT 24.9 % (36.0-48.0); HEMOGLOBIN 7.5 g/dL (12.0-16.0); IMMATURE GRANULOCYTES 0.5 %; IMMATURE GRANULOCYTES ABSOLUTE 0.08 10/3/uL (0.0-0.11); LYMPHOCYTES 8.4 %; LYMPHOCYTES ABSOLUTE 1.24 10/3/uL (0.67-4.30); MEAN CORPUS HGB CONC 30.1 g/dL (32.0-36.0); MEAN CORPUSCULAR HEMOGLOB 27.7 pg (26.0-34.0); MEAN CORPUSCULAR VOLUME 91.9 fL (80-100); MEAN PLATELET VOLUME 8.8 fL (9.2-13.0); MONOCYTES 10.7 %; MONOCYTES ABSOLUTE 1.59 10/3/uL (0.21-1.20); NEUTROPHILS ABSOLUTE 11.59 10/3/uL (2.02-8.40); PLATELET COUNT 359 10/3/uL (150-400); RBC DISTRIBUTION WIDTH 17.3 % (12.0-16.0); RED CELL COUNT 2.71 10/6/uL (4.0-5.6); WHITE BLOOD CELLS 14.9 10/3/uL (4.5-10.5)
[2016-12-11 06:15] LABS: MANUAL DIFF NO %
[2016-12-11 06:22] LABS: CALCIUM, SERUM 8.4 MG/DL (8.5-10.4); CHLORIDE, SERUM 102 MMOL/L (96-112); CO2 (CARBON DIOXIDE) 28 MMOL/L (24-34); POTASSIUM, SERUM 4.4 MMOL/L (3.5-5.3); SODIUM, SERUM 140 MMOL/L (135-148)
[2016-12-11 06:24] LABS: BUN (BLOOD UREA NITROGEN) 21 MG/DL (6-23); GFR AFRICAN AMERICAN 18 ML/MIN (>=60); GFR NON AFRICAN AMERICAN 16 ML/MIN (>=60); GLUCOSE, SERUM 78 MG/DL (60-99)
[2016-12-12 05:05] LABS: BASOPHILS 0.2 %; BASOPHILS ABSOLUTE 0.03 10/3/uL (0.0-0.16); EOSINOPHILS 2.7 %; EOSINOPHILS ABSOLUTE 0.38 10/3/uL (0.0-0.53); HEMATOCRIT 23.5 % (36.0-48.0); HEMOGLOBIN 7.1 g/dL (12.0-16.0); IMMATURE GRANULOCYTES 0.6 %; IMMATURE GRANULOCYTES ABSOLUTE 0.09 10/3/uL (0.0-0.11); LYMPHOCYTES 11.6 %; LYMPHOCYTES ABSOLUTE 1.63 10/3/uL (0.67-4.30); MEAN CORPUS HGB CONC 30.2 g/dL (32.0-36.0); MEAN CORPUSCULAR HEMOGLOB 27.5 pg (26.0-34.0); MEAN CORPUSCULAR VOLUME 91.1 fL (80-100); MEAN PLATELET VOLUME 8.8 fL (9.2-13.0); MONOCYTES 10.7 %; NEUTROPHILS 74.2 %; NEUTROPHILS ABSOLUTE 10.38 10/3/uL (2.02-8.40); PLATELET COUNT 353 10/3/uL (150-400); RBC DISTRIBUTION WIDTH 17.3 % (12.0-16.0); RED CELL COUNT 2.58 10/6/uL (4.0-5.6)
[2016-12-12 05:07] LABS: MANUAL DIFF NO %
[2016-12-13 08:50] LABS: BASOPHILS 0.1 %; BASOPHILS ABSOLUTE 0.02 10/3/uL (0.0-0.16); EOSINOPHILS 2.5 %; EOSINOPHILS ABSOLUTE 0.38 10/3/uL (0.0-0.53); HEMATOCRIT 22.2 % (36.0-48.0); IMMATURE GRANULOCYTES 0.5 %; IMMATURE GRANULOCYTES ABSOLUTE 0.08 10/3/uL (0.0-0.11); LYMPHOCYTES 10.5 %; LYMPHOCYTES ABSOLUTE 1.57 10/3/uL (0.67-4.30); MANUAL DIFF NO %; MEAN CORPUS HGB CONC 30.2 g/dL (32.0-36.0); MEAN CORPUSCULAR HEMOGLOB 27.1 pg (26.0-34.0); MEAN CORPUSCULAR VOLUME 89.9 fL (80-100); MEAN PLATELET VOLUME 8.5 fL (9.2-13.0); MONOCYTES 8.9 %; MONOCYTES ABSOLUTE 1.33 10/3/uL (0.21-1.20); NEUTROPHILS 77.5 %; NEUTROPHILS ABSOLUTE 11.56 10/3/uL (2.02-8.40); PLATELET COUNT 332 10/3/uL (150-400); RBC DISTRIBUTION WIDTH 17.1 % (12.0-16.0); RED CELL COUNT 2.47 10/6/uL (4.0-5.6); WHITE BLOOD CELLS 14.9 10/3/uL (4.5-10.5)
[2016-12-13 09:10] LABS: ALBUMIN 1.5 G/DL (3.5-5.0); CALCIUM, SERUM 8.1 MG/DL (8.5-10.4); CHLORIDE, SERUM 97 MMOL/L (96-112); CO2 (CARBON DIOXIDE) 26 MMOL/L (24-34); POTASSIUM, SERUM 4.5 MMOL/L (3.5-5.3); SODIUM, SERUM 134 MMOL/L (135-148)
[2016-12-13 09:11] LABS: BUN (BLOOD UREA NITROGEN) 53 MG/DL (6-23); GFR AFRICAN AMERICAN 10 ML/MIN (>=60); GFR NON AFRICAN AMERICAN 9 ML/MIN (>=60); GLUCOSE, SERUM 105 MG/DL (60-99); PHOSPHORUS, SERUM 4.7 MG/DL (2.5-4.5)
[2016-12-13] MEDS ORDERED: ELIQUIS 2.5 MG2.5 MG PO (14:16)
[2016-12-13] MEDS ORDERED: LEVAQUIN5T PO (14:16)
[2016-12-13] MEDS ORDERED: BACTROCR TOP (14:18)
[2016-12-13] MEDS ORDERED: NYSTATPOW TOP (14:40)
[2017-03-07] MEDS ORDERED: PROAIR HFA INH (10:17)
[2017-04-10] MEDS ORDERED: ROCALTROL0.5 MCG PO (13:49)
[2017-04-10] MEDS ORDERED: PCET PO (13:51)
[2017-04-10] MEDS ORDERED: TUMSROLL PO (13:54)
[2017-04-14] MEDS ORDERED: TUMS E-X750 M2 PO (22:56)
[2017-04-14] MEDS ORDERED: ROCALTROL0.5 MCG PO (22:56)
[2017-04-14] MEDS ORDERED: PROAIR HFA INH (22:57)
[2017-04-14] MEDS ORDERED: FLORASTOR250 MG PO (22:57)
[2017-04-14] MEDS ORDERED: ZOL100 PO (23:04)
[2017-04-14] MEDS ORDERED: NORV5 PO (23:04)
[2017-04-14] MEDS ORDERED: NEUR100 PO (23:04)
[2017-04-14] MEDS ORDERED: CRESTOR40 MG PO (23:04)
[2017-04-14] MEDS ORDERED: SANTYL OINTMENT TOP (23:05)
[2017-04-14] MEDS ORDERED: DIOV160 PO (23:05)
[2017-04-14] MEDS ORDERED: LOP25 PO (23:06)
[2017-04-14] MEDS ORDERED: TRAZ50 PO (23:06)
[2017-04-14] MEDS ORDERED: CORDARONE PO (23:06)
[2017-04-14] MEDS ORDERED: APRES50 PO (23:06)
[2017-04-14] MEDS ORDERED: NORCO1 TAB PO (23:06)
[2017-04-14] MEDS ORDERED: NYSTATPOW TOP (23:07)
[2017-04-14] MEDS ORDERED: LIDO2JELLY TOP (23:08)
[2017-04-14] MEDS ORDERED: ELIQUIS 2.5 MG2.5 MG PO (23:08)
[2017-04-14] MEDS ORDERED: AURYXIA210 MG PO (23:09)
[2017-04-14] MEDS ORDERED: LANTUS SC (23:09)
[2017-04-14] MEDS ORDERED: HUMALOG (23:10)
[2017-04-14] MEDS ORDERED: SEVE800T PO (23:11)
== END 2016-12-13 15:19 | disposition home health service (06) | DRG 673 ==
LOC: ER 17:30 → 1SO 19:06
PROVIDERS: Emergency Medicine; Internal Medicine Nephrology; Nurse Practitioner; Registered Nurse; Surgery
PROC: 5A1D60Z (ICD-10-PCS; principal; 2016-12-10 09:45)
PROC: 0JB80ZZ Excision of Abdomen Subcutaneous Tissue and Fascia, Open Approach (ICD-10-PCS; 2016-12-10 09:45)
PROC: 0WPG03Z Removal of Infusion Device from Peritoneal Cavity, Open Approach (ICD-10-PCS; 2016-12-10 09:45)
PROC: 30233N1 Transfusion of Nonautologous Red Blood Cells into Peripheral Vein, Percutaneous Approach (ICD-10-PCS; 2016-12-13)
DX: I12.0 Hypertensive chronic kidney disease with stage 5 chronic kidney disease or end stage renal disease (principal); N18.6 End stage renal disease; S36.81XA Injury of peritoneum, initial encounter; E11.22 Type 2 diabetes mellitus with diabetic chronic kidney disease; I48.0 Paroxysmal atrial fibrillation; Z68.43 Body mass index [BMI] 50.0-59.9, adult; E83.59 Other disorders of calcium metabolism; Z99.2 Dependence on renal dialysis; E66.01 Morbid (severe) obesity due to excess calories; Z79.01 Long term (current) use of anticoagulants; D63.1 Anemia in chronic kidney disease; E78.5 Hyperlipidemia, unspecified; G47.33 Obstructive sleep apnea (adult) (pediatric)
CPT/HCPCS: 36415; 71010; 80048; 80069; 82330; 82805; 82962; 83735; 84484; 84703; 85025; 85610; 85730; 86850; 86900; 86901; 86920; 87015; 87040; 87070; 87075; 87102; 87116; 87205; 93005; 99285; A9270-GY; G0257; J0690; J1720; J1956; J2250; J2270; J2405; J2710; J2916; J3010; P9016; P9047

== ENCOUNTER 2017-04-29 18:40 | Inpatient (IN) | payer MEDICARE ==
[~2017-04-29] VITALS: Ht 162.6 cm; Wt 136.6 kg
--- NOTE | ~2017-04-29 | HP ---
History And Physical [place] [address] [facility] [place]. [address] NAME: JACKIE PLUMMER : 63 STATUS : ADM Antoine PAT#: [id number] AGE: 51 ADM/REG DATE : 04/29/17 MR#: [id number] REPORT SERV DATE: 04/30/17 DICTATED BY: DATE: REPORT STATUS : Draft TRANSCRIBED BY: MODL DATE: 04/30/17 DATE OF ADMISSION: 04/29/2017 REASON FOR ADMISSION: End-stage renal disease with myopathy. HISTORY OF PRESENT ILLNESS: This is a well-known 51-year-old female patient, who dialyzes on a Tuesday, Tuesday, Tuesday schedule via a right upper extremity fistula. She was recently inpatient here at [facility] for surgical intervention by Dr. Ibrahim for pannicular region gangrenous panniculitis with cellulitis in the setting of calciphylaxis. She was dismissed on 04/21/2017 to [facility] with daptomycin through 04/29 which was last evening. She did receive her complete course of daptomycin as reported this morning on 04/30/2017. She was sent here from [facility] due to a complaint of ongoing difficulty with neck and shoulder myalgias. It was initially reported that she was experiencing chest pain; however, the patient states that she has had no kiki chest pain during her stay at [facility]. She states that she has had diffuse musculature pain across her trapezius and neck area and discuss this with a friend who is a nurse practitioner and the nurse practitioner suggested that in light of her chronic statin usage and recent course of daptomycin that she would benefit from evaluation of her CPKs, which were noted to be elevated. She is admitted this morning for elevated CPKs with recent medical course as listed above, and she did receive steroid dose this morning. She is awake and alert. Denies chronic chest pain. No nausea, vomiting, or diarrhea. She continues to have a Vac pack in place with a portable unit provided and transitioned from [facility]. PAST MEDICAL HISTORY: Positive for end-stage renal disease, Tuesday, Tuesday, Tuesday hemodialysis via a right upper extremity fistula; history is also positive for recent medical course as listed above with panniculitis, gangrene, cellulitis, and abscess of the right particular region with debridement and known secondary calciphylaxis; placement of Vac Pac undertaken by Dr. Matias Ibrahim on 04/15/2017. The remainder of her medical history is positive for morbid obesity; protein malnutrition; hypertension; anemia iron deficiency; leukocytosis; history of renal osteodystrophy; depression; paroxysmal atrial fibrillation; and obstructive sleep apnea. REVIEW OF SYSTEMS: Completed. Please see HPI for pertinent details. SOCIAL HISTORY: No ETOH. No illicit drugs. No tobacco. FAMILY HISTORY: Noncontributory and not reviewed during this admission. ALLERGIES: SHE LISTS ALLERGIES TO IODINATED CONTRAST, SULFA DRUGS, AND HYDROMORPHONE. ACTIVE MEDICATIONS: Include 650 mg p.o. q.4 hours p.r.n. of Tylenol; ProAir HFA two puffs inhaled q.4 hours p.r.n.; Maalox 2 mL p.r.n. for indigestion; amiodarone 200 mg p.o. daily; Norvasc 5 mg p.o. at bedtime; Eliquis 2.5 mg p.o. b.i.d.; B complex one tab p.o. daily; Rocaltrol 0.5 mcg b.i.d.; calcium carbonate 1500 mg p.o. t.i.d.; Aranesp 100 mcg q.7 days; History And Physical [address] [address] NAME: JACKIE PLUMMER : 63 STATUS : ADM Antoine PAT#: [id number] AGE: 51 ADM/REG DATE : 04/29/17 MR#: [id number] REPORT SERV DATE: 04/30/17 DICTATED BY: DATE: REPORT STATUS : Draft TRANSCRIBED BY: MODL DATE: 04/30/17 Colace 100 mg p.o. b.i.d.; Auryxia 210 mg p.o. t.i.d.; Lasix 80 mg p.o. daily; Neurontin 100 mg p.o. at bedtime; hydralazine 50 mg p.o. b.i.d.; hydrocodone 1 tablet p.o. four times a day as scheduled; [place] 1 tablet q.3 hours p.r.n.; insulin via sliding scale and Levemir 25 units subcu b.i.d.; Xylocaine 1 beatriz topical Tuesday, Tuesday, Tuesday; lidocaine 1 topical every morning; Imodium 2 mg p.o. q.6 hours p.r.n.; Cozaar 100 mg p.o. daily; Lopressor 25 mg p.o. b.i.d.; milk of magnesia 30 mL p.r.n.; Florastor 250 mg p.o. daily; Zoloft 200 mg daily; Renvela 800 mg p.o. t.i.d.; Restoril 15 mg p.o. at bedtime; Desyrel 50 mg p.o. at bedtime; Santyl ointment topically; econazole powder topical; and Ambien. PHYSICAL EXAMINATION: VITAL SIGNS: Blood pressure 163/70, temperature 97.9, respiratory rate 18, heart rate is 67 beats per minute and regular, she is 99% on room air. GENERAL: She is obese female patient, who is awake and alert, in no acute distress during evaluation. HEENT: Normocephalic and atraumatic. Normal ocular movements. No scleral icterus. No conjunctival pallor is appreciated. NECK: Supple. No thyromegaly. No JVD or mass. CHEST: Shows positive S1 and S2. No rubs or gallops. LUNGS: Diminished throughout. Normal expansion effort bilaterally. No rhonchi or wheezes are appreciated on auscultation. GI: Shows positive bowel sounds to all four quadrants. No appreciable mass. No tenderness. She does have a Vac pack in her right lower quadrant with clear Tegaderm dressing with low intermittent suction to Vac pack that is transitioned here from [facility]. EXTREMITIES: Show positive pulses. Right upper extremity fistula in place. Positive bruit and thrill. No cyanosis nor edema is noted. NEUROLOGIC: She appears to be grossly intact and nonfocal, and she is of appropriate mood and affect. LABORATORY DATA: Pertinent laboratories and imaging to this evaluation are as follows. CPK most recent is at 4954 from a previous of 1394. Most recent troponin 0.06. Sodium 136, potassium 4.5, chloride 99, CO2 of 27, BUN 46, creatinine 4.69, reflected GFR at 10 mL/minute, glucose of 192, calcium 10.3, magnesium 2.1. Myoglobin 49770. Most recent CBC shows a white blood cell count of 13.1, RBC 3.22, hemoglobin 9.2, hematocrit 29.6, and platelets 352. IMPRESSION AND PLAN: This is an end-stage renal disease patient with recent medical course as listed above in HPI. She was transitioned from [facility] to [facility] for rehabilitation and IV antibiotics in the form of daptomycin. She was until yesterday chronically maintained on a statin, which was removed by the [facility] staff, and she was on daptomycin with her clinical course completed yesterday. She reported diffuse musculature pain across her shoulders and neck region and has difficulty with chronic pain by history. She was transitioned here, evaluation undertaken with noted elevation in CPK and myoglobin with recent clinical course as above. She will receive dosing of steroids this morning. We will recheck her CPK this afternoon and maintain protection of the right upper extremity fistula. Should she be maintained here until Tuesday, we will continue her usual hemodialysis course on Tuesday, Tuesday, Tuesday and ask the wound nurse to evaluate History And Physical [address] [address] NAME: JACKIE PLUMMER : 63 STATUS : ADM Antoine PAT#: [id number] AGE: 51 ADM/REG DATE : 04/29/17 MR#: [id number] REPORT SERV DATE: 04/30/17 DICTATED BY: DATE: REPORT STATUS : Draft TRANSCRIBED BY: PENNY DATE: 04/30/17 her VAC pack and return the unit to [facility] if that has not already been undertaken at that point. Further modification of treatment plan will be made based on clinical presentation, patient laboratory results, further consultation, and clinical course as we proceed throughout the day. /PENNY Sudhir Lopez NP / [id number] CC: Vira Morales
[~2017-04-29 18:40] MED LIST changes: +ARANESP60 IV; +AURYXIA210 MG PO; +BACTROCR TOP; +DIOV160 PO; +FLORASTOR250 MG PO; +HUMALOG; +LEVAQUIN5T PO; +LIDO2JELLY TOP; +NORCO1 TAB PO; +NYSTATPOW TOP; +PCET PO; +PROTEIN SUPPLEMENT PO; +ROCALTROL0.5 MCG PO; +SANTYL OINTMENT TOP; +SEVE800T PO; +TUMS E-X750 M2 PO; +TUMSROLL PO; +VENOFER IV; +ZEMPLAR IV; +ZOL50 PO
[2017-04-29 21:56] LABS: BASOPHILS 0.4 %; BASOPHILS ABSOLUTE 0.05 10/3/uL (0.0-0.16); EOSINOPHILS 3.8 %; EOSINOPHILS ABSOLUTE 0.49 10/3/uL (0.0-0.53); ER CBC TAT 0 Hrs 08 Mins; HEMOGLOBIN 9.9 g/dL (12.0-16.0); IMMATURE GRANULOCYTES 0.4 %; IMMATURE GRANULOCYTES ABSOLUTE 0.05 10/3/uL (0.0-0.11); LYMPHOCYTES 11.7 %; LYMPHOCYTES ABSOLUTE 1.49 10/3/uL (0.67-4.30); MEAN CORPUS HGB CONC 30.9 g/dL (32.0-36.0); MEAN CORPUSCULAR HEMOGLOB 28.6 pg (26.0-34.0); MEAN CORPUSCULAR VOLUME 92.5 fL (80-100); MONOCYTES 7.4 %; MONOCYTES ABSOLUTE 0.94 10/3/uL (0.21-1.20); NEUTROPHILS 76.3 %; NEUTROPHILS ABSOLUTE 9.76 10/3/uL (2.02-8.40); PLATELET COUNT 347 10/3/uL (150-400); RBC DISTRIBUTION WIDTH 15.9 % (12.0-16.0); RED CELL COUNT 3.46 10/6/uL (4.0-5.6); WHITE BLOOD CELLS 12.8 10/3/uL (4.5-10.5)
[2017-04-29 21:57] LABS: MANUAL DIFF NO %
[2017-04-29 22:26] LABS: BUN (BLOOD UREA NITROGEN) 46 MG/DL (6-23); CALCIUM, SERUM 10.3 MG/DL (8.5-10.4); CHLORIDE, SERUM 99 MMOL/L (96-112); CO2 (CARBON DIOXIDE) 27 MMOL/L (24-34); CPK 4954 U/L (0-200); CREATININE 4.69 MG/DL (0.55-1.02); GFR AFRICAN AMERICAN 12 ML/MIN (>=60); GFR NON AFRICAN AMERICAN 10 ML/MIN (>=60); GLUCOSE, SERUM 192 MG/DL (60-99); MYOGLOBIN, SERUM 12615 NG/ML (0-85); POTASSIUM, SERUM 4.5 MMOL/L (3.5-5.3); SODIUM, SERUM 136 MMOL/L (135-148)
[2017-04-29 22:27] LABS: CHEST PAIN PROFILE TAT 0 Hrs 39 Mins; TROPONIN I 0.07 NG/ML (<0.05)
[2017-04-29 22:30] LABS: INTERNATIONAL NORMAL RATI 1.3 UNITS (-); PARTIAL THROMBO TIME 34.1 SEC (22.5-37.2); PROTIME (NOT ORD) 15.9 SEC (12.0-14.5)
[2017-04-30] MEDS ORDERED: NORCO1 TAB PO (00:03)
[2017-04-30] MEDS ORDERED: ELIQUIS 2.5 MG2.5 MG PO (00:03)
[2017-04-30] MEDS ORDERED: NORV5 PO (00:03)
[2017-04-30] MEDS ORDERED: CORDARONE PO (00:03)
[2017-04-30] MEDS ORDERED: TUMSROLL PO (00:04)
[2017-04-30] MEDS ORDERED: ROCALTROL0.5 MCG PO (00:04)
[2017-04-30] MEDS ORDERED: SANTYL OINTMENT TOP (00:05)
[2017-04-30] MEDS ORDERED: ARANESP100 IV (00:05)
[2017-04-30] MEDS ORDERED: DSS PO (00:06)
[2017-04-30] MEDS ORDERED: NEUR100 PO (00:06)
[2017-04-30] MEDS ORDERED: L80 PO (00:06)
[2017-04-30] MEDS ORDERED: APRES50 PO (00:07)
[2017-04-30] MEDS ORDERED: LIDODERM TOP (00:08)
[2017-04-30] MEDS ORDERED: NOVOLOG (00:08)
[2017-04-30] MEDS ORDERED: LEVEMIR SC (00:08)
[2017-04-30] MEDS ORDERED: RENA-VITE PO (00:09)
[2017-04-30] MEDS ORDERED: LOP25 PO (00:09)
[2017-04-30] MEDS ORDERED: COZAAR100 MG PO (00:09)
[2017-04-30] MEDS ORDERED: LIDO2JELLY TOP (00:09)
[2017-04-30] MEDS ORDERED: AURYXIA210 MG PO (00:10)
[2017-04-30] MEDS ORDERED: FLORASTOR250 MG PO (00:10)
[2017-04-30] MEDS ORDERED: RENVELA800 MG PO (00:10)
[2017-04-30] MEDS ORDERED: ZOL100 PO (00:10)
[2017-04-30] MEDS ORDERED: TRAZ50 PO (00:10)
[2017-04-30] MEDS ORDERED: PROAIR HFA INH (00:11)
[2017-04-30] MEDS ORDERED: MAALOX PO (00:11)
[2017-04-30] MEDS ORDERED: NORCO1 TA1 PO (00:11)
[2017-04-30] MEDS ORDERED: T PO (00:11)
[2017-04-30] MEDS ORDERED: MOMUD PO (00:12)
[2017-04-30] MEDS ORDERED: IMOD PO (00:12)
[2017-04-30] MEDS ORDERED: AMB5 PO (00:14)
[2017-04-30] MEDS ORDERED: MICONAZOLE 2% TOP (00:14)
[2017-04-30] MEDS ORDERED: REST15 PO (00:14)
[2017-04-30 10:35] LABS: CKMB INDEX (NOT ORD) 0.6
[2017-04-30 10:36] LABS: TROPONIN I 0.08 NG/ML (<0.05)
[2017-05-02 08:15] LABS: BASOPHILS 0.2 %; BASOPHILS ABSOLUTE 0.04 10/3/uL (0.0-0.16); EOSINOPHILS 2.2 %; EOSINOPHILS ABSOLUTE 0.38 10/3/uL (0.0-0.53); HEMATOCRIT 32.6 % (36.0-48.0); HEMOGLOBIN 10.3 g/dL (12.0-16.0); IMMATURE GRANULOCYTES 0.4 %; IMMATURE GRANULOCYTES ABSOLUTE 0.06 10/3/uL (0.0-0.11); LYMPHOCYTES 10.1 %; LYMPHOCYTES ABSOLUTE 1.72 10/3/uL (0.67-4.30); MEAN CORPUS HGB CONC 31.6 g/dL (32.0-36.0); MEAN CORPUSCULAR HEMOGLOB 28.7 pg (26.0-34.0); MEAN CORPUSCULAR VOLUME 90.8 fL (80-100); MEAN PLATELET VOLUME 8.9 fL (9.2-13.0); MONOCYTES 5.4 %; MONOCYTES ABSOLUTE 0.93 10/3/uL (0.21-1.20); NEUTROPHILS 81.7 %; NEUTROPHILS ABSOLUTE 13.97 10/3/uL (2.02-8.40); PLATELET COUNT 347 10/3/uL (150-400); RBC DISTRIBUTION WIDTH 16.3 % (12.0-16.0); RED CELL COUNT 3.59 10/6/uL (4.0-5.6); WHITE BLOOD CELLS 17.1 10/3/uL (4.5-10.5)
[2017-05-02 08:16] LABS: MANUAL DIFF NO %
[2017-05-02 08:29] LABS: ALBUMIN 2.3 G/DL (3.5-5.0); CHLORIDE, SERUM 96 MMOL/L (96-112); CO2 (CARBON DIOXIDE) 27 MMOL/L (24-34); SODIUM, SERUM 132 MMOL/L (135-148)
[2017-05-02 08:32] LABS: BUN (BLOOD UREA NITROGEN) 81 MG/DL (6-23); CALCIUM, SERUM 12.2 MG/DL (8.5-10.4); CREATININE 6.61 MG/DL (0.55-1.02); GFR AFRICAN AMERICAN 8 ML/MIN (>=60); GFR NON AFRICAN AMERICAN 7 ML/MIN (>=60); GLUCOSE, SERUM 120 MG/DL (60-99); POTASSIUM, SERUM 5.6 MMOL/L (3.5-5.3)
[2017-05-03 05:38] LABS: BASOPHILS 0.2 %; BASOPHILS ABSOLUTE 0.03 10/3/uL (0.0-0.16); EOSINOPHILS 4.2 %; EOSINOPHILS ABSOLUTE 0.52 10/3/uL (0.0-0.53); HEMATOCRIT 31.5 % (36.0-48.0); HEMOGLOBIN 9.7 g/dL (12.0-16.0); IMMATURE GRANULOCYTES 0.4 %; IMMATURE GRANULOCYTES ABSOLUTE 0.05 10/3/uL (0.0-0.11); LYMPHOCYTES 15.7 %; LYMPHOCYTES ABSOLUTE 1.95 10/3/uL (0.67-4.30); MEAN CORPUS HGB CONC 30.8 g/dL (32.0-36.0); MEAN CORPUSCULAR HEMOGLOB 28.4 pg (26.0-34.0); MEAN CORPUSCULAR VOLUME 92.1 fL (80-100); MEAN PLATELET VOLUME 8.9 fL (9.2-13.0); MONOCYTES 7.3 %; MONOCYTES ABSOLUTE 0.91 10/3/uL (0.21-1.20); NEUTROPHILS 72.2 %; NEUTROPHILS ABSOLUTE 8.95 10/3/uL (2.02-8.40); PLATELET COUNT 288 10/3/uL (150-400); RED CELL COUNT 3.42 10/6/uL (4.0-5.6); WHITE BLOOD CELLS 12.4 10/3/uL (4.5-10.5)
[2017-05-03 05:39] LABS: MANUAL DIFF NO %
[2017-05-03 06:10] LABS: ALBUMIN 2.5 G/DL (3.5-5.0); CALCIUM, SERUM 11.7 MG/DL (8.5-10.4); CHLORIDE, SERUM 97 MMOL/L (96-112); CO2 (CARBON DIOXIDE) 27 MMOL/L (24-34); PHOSPHORUS, SERUM 4.7 MG/DL (2.5-4.5); POTASSIUM, SERUM 5.7 MMOL/L (3.5-5.3); SODIUM, SERUM 132 MMOL/L (135-148)
[2017-05-03 06:15] LABS: BUN (BLOOD UREA NITROGEN) 56 MG/DL (6-23); CPK 6457 U/L (0-200); CREATININE 5.12 MG/DL (0.55-1.02); GFR AFRICAN AMERICAN 10 ML/MIN (>=60); GFR NON AFRICAN AMERICAN 9 ML/MIN (>=60); GLUCOSE, SERUM 85 MG/DL (60-99)
[2017-05-03 19:00] LABS: ASCORBIC ACID (UR NOT ORDER) NEG (NEG); BILIRUBIN, URINE NEGATIVE (NEG); KETONE, URINE NEGATIVE (NEG); LEUKOCYTE ESTERASE(NOT OR LARGE (NEG)
[2017-05-03 19:02] LABS: WBC (NOT ORDERED) (RFLEX) > 182 (0-5)
[2017-05-04 05:24] LABS: HEMATOCRIT 31.4 % (36.0-48.0); HEMOGLOBIN 9.7 g/dL (12.0-16.0); MEAN CORPUS HGB CONC 30.9 g/dL (32.0-36.0); MEAN CORPUSCULAR HEMOGLOB 28.4 pg (26.0-34.0); MEAN CORPUSCULAR VOLUME 91.8 fL (80-100); MEAN PLATELET VOLUME 9.2 fL (9.2-13.0); PLATELET COUNT 278 10/3/uL (150-400); RBC DISTRIBUTION WIDTH 17.1 % (12.0-16.0); RED CELL COUNT 3.42 10/6/uL (4.0-5.6); WHITE BLOOD CELLS 13.3 10/3/uL (4.5-10.5)
[2017-05-04 05:25] LABS: MANUAL DIFF YES %
[2017-05-04 05:54] LABS: ALBUMIN 2.5 G/DL (3.5-5.0); BUN (BLOOD UREA NITROGEN) 75 MG/DL (6-23); CALCIUM, SERUM 11.9 MG/DL (8.5-10.4); CHLORIDE, SERUM 95 MMOL/L (96-112); CO2 (CARBON DIOXIDE) 26 MMOL/L (24-34); CPK 2803 U/L (0-200); GFR AFRICAN AMERICAN 8 ML/MIN (>=60); GFR NON AFRICAN AMERICAN 7 ML/MIN (>=60); GLUCOSE, SERUM 149 MG/DL (60-99); PHOSPHORUS, SERUM 5.6 MG/DL (2.5-4.5); POTASSIUM, SERUM 5.7 MMOL/L (3.5-5.3); SODIUM, SERUM 130 MMOL/L (135-148)
[2017-05-04 05:56] LABS: ANISOCYTOSIS 1+ (5-10/OIF) (0-5/OIF); EOSINOPHILS 2 %; EOSINOPHILS ABSOLUTE (CALC) 0.27 10/3/uL (0.0-0.53); LYMPHOCYTES 9 %; MONOCYTES 2 %; MONOCYTES ABSOLUTE (CALC) 0.27 10/3/uL (0.21-1.20); NEUTROPHILS ABSOLUTE (CALC) 11.57 10/3/uL (2.02-8.40); SEGMENTED NEUTROPHIL (0) 87 %; TOTAL NUCLEATED CELLS 100
[2017-05-04 05:57] LABS: PLATELET ESTIMATE ADQ (ADEQUATE)
[2017-05-05 07:17] LABS: ALBUMIN 2.8 G/DL (3.5-5.0); BUN (BLOOD UREA NITROGEN) 57 MG/DL (6-23); CALCIUM, SERUM 10.9 MG/DL (8.5-10.4); CHLORIDE, SERUM 97 MMOL/L (96-112); CO2 (CARBON DIOXIDE) 26 MMOL/L (24-34); CPK 802 U/L (0-200); CREATININE 5.11 MG/DL (0.55-1.02); GFR AFRICAN AMERICAN 10 ML/MIN (>=60); GFR NON AFRICAN AMERICAN 9 ML/MIN (>=60); GLUCOSE, SERUM 117 MG/DL (60-99); PHOSPHORUS, SERUM 4.1 MG/DL (2.5-4.5); SODIUM, SERUM 132 MMOL/L (135-148)
[2017-05-06 06:21] LABS: BASOPHILS 0.2 %; BASOPHILS ABSOLUTE 0.03 10/3/uL (0.0-0.16); EOSINOPHILS 3.1 %; EOSINOPHILS ABSOLUTE 0.39 10/3/uL (0.0-0.53); HEMATOCRIT 30.2 % (36.0-48.0); HEMOGLOBIN 9.4 g/dL (12.0-16.0); IMMATURE GRANULOCYTES 0.4 %; IMMATURE GRANULOCYTES ABSOLUTE 0.05 10/3/uL (0.0-0.11); LYMPHOCYTES 15.5 %; LYMPHOCYTES ABSOLUTE 1.94 10/3/uL (0.67-4.30); MEAN CORPUS HGB CONC 31.1 g/dL (32.0-36.0); MEAN CORPUSCULAR HEMOGLOB 28.7 pg (26.0-34.0); MEAN CORPUSCULAR VOLUME 92.1 fL (80-100); MEAN PLATELET VOLUME 9.2 fL (9.2-13.0); MONOCYTES 10.2 %; MONOCYTES ABSOLUTE 1.28 10/3/uL (0.21-1.20); NEUTROPHILS 70.6 %; PLATELET COUNT 270 10/3/uL (150-400); RBC DISTRIBUTION WIDTH 17.7 % (12.0-16.0); RED CELL COUNT 3.28 10/6/uL (4.0-5.6); WHITE BLOOD CELLS 12.5 10/3/uL (4.5-10.5)
[2017-05-06 06:23] LABS: MANUAL DIFF NO %
[2017-05-06 06:42] LABS: ALBUMIN 2.8 G/DL (3.5-5.0); CALCIUM, SERUM 10.8 MG/DL (8.5-10.4); CHLORIDE, SERUM 100 MMOL/L (96-112); CO2 (CARBON DIOXIDE) 25 MMOL/L (24-34); GLUCOSE, SERUM 124 MG/DL (60-99); POTASSIUM, SERUM 5.4 MMOL/L (3.5-5.3); SODIUM, SERUM 135 MMOL/L (135-148)
[2017-05-06 06:43] LABS: BUN (BLOOD UREA NITROGEN) 80 MG/DL (6-23); CREATININE 6.73 MG/DL (0.55-1.02); GFR AFRICAN AMERICAN 7 ML/MIN (>=60); GFR NON AFRICAN AMERICAN 6 ML/MIN (>=60); PHOSPHORUS, SERUM 6.6 MG/DL (2.5-4.5)
[2017-05-06] MEDS ORDERED: LEVAQUIN5T PO (13:16)
== END 2017-05-06 15:33 | disposition home health service (06) | DRG 91 ==
LOC: ER 18:40 → 1SO 23:23 → ENPENDDIS 04-30 14:15 → 1SO 04-30 14:15
PROVIDERS: Emergency Medicine; Internal Medicine Nephrology; Registered Nurse
PROC: 5A1D60Z (ICD-10-PCS; principal; 2017-05-02)
DX: G72.0 Drug-induced myopathy (principal); N18.6 End stage renal disease; I12.0 Hypertensive chronic kidney disease with stage 5 chronic kidney disease or end stage renal disease; Z68.43 Body mass index [BMI] 50.0-59.9, adult; E11.22 Type 2 diabetes mellitus with diabetic chronic kidney disease; I48.0 Paroxysmal atrial fibrillation; T36.8X5A Adverse effect of other systemic antibiotics, initial encounter; D63.1 Anemia in chronic kidney disease; E66.9 Obesity, unspecified; Z99.2 Dependence on renal dialysis; G47.33 Obstructive sleep apnea (adult) (pediatric); G89.29 Other chronic pain; F32.9 Major depressive disorder, single episode, unspecified; Z79.4 Long term (current) use of insulin; Z79.01 Long term (current) use of anticoagulants; Z79.891 Long term (current) use of opiate analgesic; Z79.899 Other long term (current) drug therapy; Z88.5 Allergy status to narcotic agent; Z88.2 Allergy status to sulfonamides; Z91.041 Radiographic dye allergy status
CPT/HCPCS: 71010; 80048; 80069; 81001; 82550; 82553; 82962; 83735; 83874; 84132; 84484; 85025; 85610; 85730; 87077; 87086; 87186; 93005; 97116-GP; 97161-GP; 99285; A9270-GY; G0257; G8978-CK-GP; G8979-CJ-GP; J0360; J0885; J2405; J2930; P9047